=== PATIENT | female | born 1995 | race African-American/Black ===

== ENCOUNTER 2017-05-15 05:46 | Inpatient (IN) ==
[2017-05-15] MEDS ORDERED: ONDANSETRON 4 MG/2 ML VIAL IV PRN ×2 (07:00→23:35)
[2017-05-15] MEDS ORDERED: ACETAMINOPHEN 325 MG TABLET PO PRN ×2 (07:00→23:35)
[2017-05-15] MEDS ORDERED: MEPERIDINE 50 MG/1 ML VIAL IV PRN (07:00)
[2017-05-15] MEDS ORDERED: INFLUENZA VIRUS VACCINE 0.5 ML SYRINGE IM ONE (07:09)
[2017-05-15 07:44] LABS: Basophils % 0.2 % (0.0-0.8); Eosinophils # 0.1 10*3/uL (0.0-0.87); Eosinophils % 1.1 % (0.00-10.9); Hematocrit 33.9 VOL% (35.7-47.0); Hemoglobin 11.3 GM/DL (12.0-16.0); Immature Granulocytes % 0.4 %; Immature Granulocytes Absolute 0.05 #; Lymphocytes # 2.3 10*3/uL (1.4-4.0); Mean Corpuscular HGB Conc 33.3 GM/DL (32-36); Mean Corpuscular Hemoglobin 26 PG (27-34); Mean Corpuscular Volume 78.3 FL (87-102); Mean Platelet Volume 11.7 FL (9.6-12.0); Monocytes # 0.8 10*3/uL (0.11-0.8); Monocytes % 6.4 % (1.7-12.7); Neutrophils # 8.6 10*3/uL (1.4-7.4); Neutrophils % 72.9 % (38.7-73.9); Platelet Count 178 T/CUMM (130-400); Red Blood Count 4.33 MC/CUMM (3.8-5.5); Red Cell Distribution Width 13.8 % (9.3-17.3); White Blood Count 11.8 T/CUMM (4-12)
[2017-05-15 07:54] LABS: PT Patient Result 10.2 SECS; Partial Thromboplastin Time 30.3 SECS (0-40)
[2017-05-15 08:12] LABS: Albumin 2.6 G/DL (3.4-5.0); Bilirubin,Total 0.4 MG/DL (0.2-1.0); Calcium 8.2 MG/DL (8.5-10.1); Osmolality,Calculated 275.3 MOS/KG (273-304); Potassium 3.3 MMOL/L (3.5-5.1); Total Protein 5.9 G/DL (6.4-8.3); Uric Acid 3.9 MG/DL (2.6-6.0)
[2017-05-15] MEDS ORDERED: DINOPROSTONE VAG GEL 10 MG SYRINGE VAG ONE (09:28)
[2017-05-15] MEDS: LACTATED RINGERS 1,000 ML IV SCH ×2 (16:21→19:30)
[2017-05-15] MEDS ORDERED: CITRIC ACID/SODIUM CITRATE 30 ML UDCUP ONE (19:10)
[2017-05-15] MEDS ORDERED: fentaNYL 2 MCG/ROPIV 0.2% EPID 150 ML EPIDURAL ONE (19:10)
[2017-05-15] MEDS ORDERED: CITRIC ACID/SODIUM CITRATE 30 ML UDCUP PO ONE (19:11)
[2017-05-15] MEDS ORDERED: ePHEDrine 50 MG/ML AMP ONE (19:11)
[2017-05-15] MEDS ORDERED: FAMOTIDINE 20 MG/2 ML VIAL IV ONE (19:11)
[2017-05-15] MEDS ORDERED: ePHEDrine 50 MG/ML AMP IV PRN (19:11)
[2017-05-15] MEDS ORDERED: fentaNYL 2 MCG/ROPIV 0.2% EPID 150 ML EPIDURAL SCH (19:12)
[2017-05-15] MEDS ORDERED: SODIUM CHLORIDE 0.9% 0 ML IV ONE (19:31)
[2017-05-15] MEDS ORDERED: AMPICILLIN 2,000 MG VIAL ONE (19:31)
[2017-05-15] MEDS ORDERED: AMPICILLIN INJ 2,000 MG in SODIUM CHLORIDE 0.9% 50 ML IV ONE (19:31)
[2017-05-15] MEDS ORDERED: SODIUM CHLORIDE 0.9% 100 ML IV ONE (19:32)
[2017-05-15] MEDS ORDERED: OXYTOCIN/LR 30 UNIT/1,000 ML BAG IV ONE (20:38)
[2017-05-15] MEDS: LABETALOL 100 MG TABLET PO SCH ×2 (20:55→20:56)
[2017-05-15] MEDS ORDERED: LIDOCAINE 1% 50 ML VIAL ONE (21:31)
[2017-05-15] MEDS ORDERED: miSOPROStol 200 MCG TABLET ONE (21:31)
[2017-05-15] MEDS ORDERED: CARBOPROST TROMETHAMINE 250 MCG/ML AMP IM ONE (21:32)
[2017-05-15 23:34] LABS: Cord Arterial Blood HCO3 16.4 MMOL/L
[2017-05-15] MEDS ORDERED: BISACODYL 10 MG SUPP RECTAL PRN (23:35)
[2017-05-15] MEDS ORDERED: oxyCODONE/ACETAMINOPHEN 5-325 MG TABLET PO PRN (23:35)
[2017-05-15] MEDS ORDERED: MEASLES/MUMPS/RUBELLA VACCINE 0.5 ML VIAL SUBCUT ONE (23:35)
[2017-05-15] MEDS ORDERED: BENZOCAINE 20%/MENTHOL 0.5% SPRAY 56 GM CAN TOP PRN (23:35)
[2017-05-15] MEDS ORDERED: LANOLIN 50% CREAM 0.3 OZ TUBE TOP PRN (23:35)
[2017-05-15] MEDS ORDERED: HYDROCORTISONE 2.5% RECTAL CREAM 30 GM TUBE TOP PRN (23:35)
[2017-05-15] MEDS ORDERED: WITCH HAZEL PADS 100/JAR TOP PRN (23:35)
[2017-05-15] MEDS ORDERED: OXYTOCIN/LR 20 UNIT/1,000 ML BAG IV ONE (23:35)
[2017-05-15] MEDS ORDERED: DIPH/TET/ACEL PERT BOOSTER VACCINE 0.5 ML VIAL IM ONE (23:35)
[2017-05-15] MEDS ORDERED: RHO(D) IMMUNE GLOBULIN 300 MCG SYRINGE IM ONE (23:35)
[2017-05-15 23:37] LABS: Cord Venous Blood HCO3 19.4 MMOL/L; Cord Venous Blood PCO2 41.7 MMHG; Cord Venous Blood PO2 35.5
[2017-05-16] LABS: Apearance,Urine CLEAR (Clear); Bilirubin,Urine Negative (Negative); Blood, Urine Moderate mg/dL (Negative); Glucose,Urine (UA) Negative (Negative); Granular Casts,Urine 1 /LPF (0-1); Hyaline Casts,Urine 6 /LPF (0-3); Ketones,Urine 80 mg/dL (Negative); Mucus,Urine Occasional /LPF (Occasional); Nitrite,Urine Negative (Negative); Protein,Urine 100 MG/DL; RBC,Urine 211 /HPF (0-4); Urine Color Yellow (Yellow); Urine Specific Gravity 1.021 (1.001-1.035); Urine Urobilinogen < 2.0 EU/DL (0.2-1.0); WBC,Urine 2 /HPF (0-6)
[2017-05-16] MEDS: oxyCODONE/ACETAMINOPHEN 5-325 MG TABLET PO PRN ×2 (04:34→13:49)
[2017-05-16 05:58] LABS: Basophils % 0.1 % (0.0-0.8); Hematocrit 31.8 VOL% (35.7-47.0); Hemoglobin 10.6 GM/DL (12.0-16.0); Immature Granulocytes % 0.5 %; Lymphocytes # 1.9 10*3/uL (1.4-4.0); Lymphocytes % 10.1 % (21.3-54.2); Mean Corpuscular HGB Conc 33.3 GM/DL (32-36); Mean Corpuscular Hemoglobin 26 PG (27-34); Mean Corpuscular Volume 78.7 FL (87-102); Mean Platelet Volume 11.4 FL (9.6-12.0); Monocytes # 1.6 10*3/uL (0.11-0.8); Monocytes % 8.3 % (1.7-12.7); Neutrophils # 15.4 10*3/uL (1.4-7.4); Platelet Count 171 T/CUMM (130-400); Red Blood Count 4.04 MC/CUMM (3.8-5.5); Red Cell Distribution Width 13.5 % (9.3-17.3)
[2017-05-16] MEDS: LABETALOL 100 MG TABLET PO SCH ×2 (08:36→20:47)
[2017-05-16] MEDS: DOCUSATE SODIUM 100 MG CAPSULE PO SCH ×2 (08:36→20:47)
[2017-05-16] MEDS: IBUPROFEN 800 MG TABLET PO PRN (09:25)
[2017-05-16] MEDS: FERROUS SULFATE 325 MG TABLET PO SCH ×2 (12:28→20:46)
[2017-05-17] MEDS: IBUPROFEN 800 MG TABLET PO PRN (00:38)
[2017-05-17] MEDS: oxyCODONE/ACETAMINOPHEN 5-325 MG TABLET PO PRN (00:39)
[2017-05-17 07:58] VITALS: BP 135/78
[2017-05-17] MEDS: LABETALOL 100 MG TABLET PO SCH (09:07)
[2017-05-17] MEDS: FERROUS SULFATE 325 MG TABLET PO SCH (09:07)
[2017-05-17] MEDS: DOCUSATE SODIUM 100 MG CAPSULE PO SCH (09:07)
[2017-05-17] MEDS ORDERED: INFLUENZA VIRUS VACCINE 0.5 ML SYRINGE IM ONE (11:32)
== END 2017-05-17 13:30 | disposition home or self-care (01) | DRG 560 ==
LOC: N.LDOUT 05:46 → N.LD 05:50 → N.OB 05-16 02:07
PROVIDERS: ADMIT Obstetrics & Gynecology; ATTEND Obstetrics & Gynecology